=== PATIENT | male | born 1995 | race Caucasian/White ===

== ENCOUNTER 2019-05-05 10:38 | Emergency (ER) | payer MEDICAID, OTHER ==
[~2019-05-05] VITALS: Ht 180.3 cm; Wt 74.0 kg
[2019-05-05 10:54] VITALS: BP 124/60
[2019-05-05] MEDS ORDERED: IBUPROFEN 600MG TABLET PO STA (12:34)
== END 2019-05-05 13:29 | disposition home or self-care (01) ==
LOC: ER 10:38
DX: M25.571 Pain in right ankle and joints of right foot (principal); R60.9 Edema, unspecified; F17.200 Nicotine dependence, unspecified, uncomplicated
CPT/HCPCS: 73610; 99283

== ENCOUNTER 2019-05-09 11:15 | Emergency (ER) | payer MEDICAID ==
[~2019-05-09] VITALS: Ht 180.3 cm; Wt 74.0 kg
[2019-05-09] MEDS ORDERED: LORAZEPAM 2MG/ML CPJ IV STA (14:06)
[2019-05-09] MEDS ORDERED: SODIUM CHLORIDE 0.9% 1,000 ML IV ONE (14:06)
[2019-05-09 14:13] VITALS: BP 120/70
== END 2019-05-09 14:51 | disposition left against medical advice (07) ==
LOC: ER 11:15
DX: R20.2 Paresthesia of skin (principal); F41.9 Anxiety disorder, unspecified; F32.9 Major depressive disorder, single episode, unspecified; F12.10 Cannabis abuse, uncomplicated; F17.200 Nicotine dependence, unspecified, uncomplicated
CPT/HCPCS: 99283; J7030